=== PATIENT | male | born 1955 | race African-American/Black ===

== ENCOUNTER 2018-06-12 02:11 | Emergency (ER) | payer MEDICAID, OTHER ==
[~2018-06-12] VITALS: Ht 182.9 cm; Wt 89.8 kg
--- NOTE | 2018-06-12 02:33 | NUR ---
ED Nurse Note: pt is aox4, able to ambulate with steady gait. pt c/o of flu like symptoms x3 days. Pt c/o cough and congestion with body aches, pain level 7/10.
[2018-06-12 02:35] VITALS: BP 116/84
[2018-06-12] MEDS ORDERED: Albuterol ud Inhalation HHN ONE (03:30)
[2018-06-12] MEDS ORDERED: Ipratropium 0.02% Inh Soln 2.5ml UD HHN ONE (03:30)
--- NOTE | 2018-06-12 03:50 | NUR ---
ED Nurse Note: Breathing treatment at bedside.
[2018-06-12] MEDS ORDERED: PROMETHAZINE-C118 M1 ORAL (04:29)
[2018-06-12] MEDS ORDERED: ALBUTEROL SULF8.5 GM INH (04:29)
[2018-06-12] MEDS ORDERED: PREDNISONE20 MG ORAL (04:29)
[2018-06-12] MEDS ORDERED: LEVAQUIN750 MG ORAL (04:29)
[2018-06-12 04:37] VITALS: BP 123/82
--- NOTE | 2018-06-12 04:38 | NUR ---
ED Nurse Note: Pt cleared DC by ERMD. Pt is AO x 4times, VSS, on room air no distress. ID band removed. Belongings given to Pt. DC and meds instructions given to Pt, Pt understood well. Pt will stay with his care Pt at bedside, wait for his Pt admit or DC.
[2018-06-12 04:41] VITALS: BP 123/82
--- NOTE | 2018-06-12 21:40 | Emergency Room Report ---
History of Present Illness General Chief Complaint: Flu Like Symptoms Source: Patient Present Illness HPI 62-year-old male presents ED for evaluation. Complaining of cough and congestion 3 days. States that he was taking care of his sick friend likely got him sick. History of COPD. Admits to smoking. Notes cough with greenish phlegm. Denies fevers or chills. Denies chest pain. No other aggravating relieving factors. Denies any other associated symptoms Allergies: Coded Allergies: IBUPROFEN (Verified Allergy, Unknown, 06/12/18) Patient History Past Medical History: HTN, COPD Pertinent Family History: none Social History: Reports: smoking; Denies: alcohol use, drug use Immunizations: UTD Reviewed Nursing Documentation: PMH: Agreed; PSxH: Agreed Nursing Documentation-PMH Hx Hypertension: Yes Hx COPD: Yes Review of Systems All Other Systems: negative except mentioned in HPI Physical Exam Vital Signs Date Time Temp Pulse Resp B/P (MAP) Pulse Ox O2 Delivery O2 Flow Rate FiO2 06/12/18 02:25 97.7 90 22 116/84 96 Room Air 06/12/18 03:37 21 Sp02 EP Interpretation: reviewed, normal General Appearance: no apparent distress, alert, GCS 15, non-toxic Head: normocephalic, atraumatic Eyes: bilateral eye normal inspection, bilateral eye PERRL ENT: hearing grossly normal, normal pharynx, no angioedema, normal voice Neck: full range of motion, supple/symm/no masses Respiratory: chest non-tender, speaking full sentences, wheezing Cardiovascular #1: regular rate, rhythm, no edema Cardiovascular #2: 2+ carotid (R), 2+ carotid (L), 2+ radial (R), 2+ radial (L) , 2+ dorsalis pedis (R), 2+ dorsalis pedis (L) Gastrointestinal: normal bowel sounds, non tender, soft, non-distended, no guarding, no rebound Rectal: deferred Genitourinary: normal inspection, no CVA tenderness Musculoskeletal: back normal, gait/station normal, normal range of motion, non- tender Neurologic: alert, oriented x3, responsive, motor strength/tone normal, sensory intact, speech normal Psychiatric: judgement/insight normal, memory normal, mood/affect normal, no suicidal/homicidal ideation Reflexes: 3+ bicep (R), 3+ bicep (L), 3+ tricep (R), 3+ tricep (L), 3+ knee (R) , 3+ knee (L) Skin: normal color, no rash, warm/dry, well hydrated Lymphatic: no adenopathy Medical Decision Making Diagnostic Impression: Primary Impression: COPD (chronic obstructive pulmonary disease) Qualified Codes: J44.9 - Chronic obstructive pulmonary disease, unspecified ER Course Hospital Course 62-year-old male presents to ED complaining of cough, wheezing Differential diagnoses include: URI, bronchitis, asthma/COPD, pneumonia Clinical course Patient placed on stretcher. After initial history and physical I ordered prednisone and nebulizer treatment. Upon reassessment patient states cough and symptoms have improved. Given history of COPD we will discharge with antibiotics. Safe for discharge with close outpatient follow-up Diagnosis - COPD Stable and discharged home with prescriptions for Rx levaquin, prednisone, albuterol, promethazine. Instructed to followup with PMD. Return to ED if symptoms recur or worsen Last Vital Signs Date Time Temp Pulse Resp B/P (MAP) Pulse Ox O2 Delivery O2 Flow Rate FiO2 06/12/18 04:41 98.4 89 20 123/82 97 Room Air 21 Status: improved Disposition: HOME, SELF-CARE Condition: Stable Scripts Levofloxacin* (LEVAQUIN*) 750 Mg Tablet 750 MG ORAL DAILY for 5 Days, TAB Prov: Zion Tapia MD 06/12/18 Codeine/Promethazine Hcl* (PROMETHAZINE-CODEINE SYRUP*) 118 Ml Syrup 5 ML ORAL Q6H PRN for For Cough, #118 ML 0 Refills Prov: Zion Tapia MD 06/12/18 Prednisone* (PREDNISONE*) 20 Mg Tablet 40 MG ORAL DAILY, #10 TAB Prov: Zion Tapia MD 06/12/18 Albuterol Sulfate* (ALBUTEROL SULFATE MDI*) 8.5 Gm Hfa.aer.ad 2 PUFF INH Q6H, #1 EA 0 Refills Prov: Zion Tapia MD 06/12/18 Patient Instructions: Acute Bronchitis, [id number] Zion Tapia MD Jun 12, 2018 21:40
== END 2018-06-12 04:42 | disposition home or self-care (01) ==
LOC: EMR 02:50
DX: J44.9 Chronic obstructive pulmonary disease, unspecified (principal); I10 Essential (primary) hypertension; Z88.6 Allergy status to analgesic agent
CPT/HCPCS: 94640; 99283; J7512

== ENCOUNTER 2018-10-19 05:52 | Emergency (ER) | payer OTHER ==
[~2018-10-19] VITALS: Ht 182.9 cm; Wt 86.2 kg
[~2018-10-19 05:52] MED LIST: ALBUTEROL SULF8.5 GM INH; LEVAQUIN750 MG ORAL; PREDNISONE20 MG ORAL; PROMETHAZINE-C118 M1 ORAL
--- NOTE | 2018-10-19 06:01 | NUR ---
ED Nurse Note: PT walked in c/o cough and sob for a week, bodyache, pt states he has hx lung disease and is a smoker. noted diminished lung sound but no sx resp distress noted, airway intact, will cont monitor.
[2018-10-19 06:07] VITALS: BP 114/63
[2018-10-19] MEDS ORDERED: PREDNISONE20 MG ORAL (06:11)
[2018-10-19] MEDS ORDERED: DOXYCYCLINE MO100 MG ORAL (06:11)
--- NOTE | 2018-10-19 06:11 | Emergency Room Report ---
History of Present Illness General Chief Complaint: Upper Respiratory Illness Source: Patient Present Illness HPI This is a 63-year-old male with a history of COPD. He is a chronic smoker but able to cut down to 1 cigarette a day. He presents with chief complaint of shortness of breath and coughing for a week and a half now. Coughing is productive of yellow sputum. No fever chills. Better with his inhaler and nebulizer treatment. Also with congestion. Second complaint is swelling to his right forearm. Is been ongoing for several days. He said he relapsed and used cocaine. He injected into his right forearm. Now the area is swollen. Denies any fever chills but denies any drainage. He has a history of IV drug use. Allergies: Coded Allergies: IBUPROFEN (Verified Allergy, Unknown, 06/12/18) Patient History Past Medical History: see triage record, old chart reviewed, COPD Past Surgical History: other Pertinent Family History: none Social History: Reports: smoking, drug use Immunizations: other Reviewed Nursing Documentation: PMH: Agreed; PSxH: Agreed Nursing Documentation-PMH Past Medical History: No History, Except For Hx Hypertension: Yes Hx COPD: Yes Review of Systems Eye: Denies: eye pain, blurred vision ENT: Denies: ear pain, nose congestion, throat swelling Respiratory: Reports: cough, shortness of breath, sputum Cardiovascular: Denies: chest pain, palpitations Gastrointestinal: Denies: abdominal pain, diarrhea, nausea, vomiting Musculoskeletal: Denies: back pain, joint pain Skin: Denies: rash Neurological: Denies: headache, numbness Endocrine: Denies: increased thirst, increased urine Hematologic/Lymphatic: Denies: easy bruising All Other Systems: negative except mentioned in HPI Physical Exam Vital Signs Date Time Temp Pulse Resp B/P (MAP) Pulse Ox O2 Delivery O2 Flow Rate FiO2 10/19/18 05:55 98.2 87 16 114/63 (80) 90 Room Air Vitals with hypoxia. Repeat oxygenation is 93% on room air. Sp02 EP Interpretation: reviewed, abnormal General Appearance: well appearing, no apparent distress, alert Head: normocephalic, atraumatic Eyes: bilateral eye PERRL, bilateral eye EOMI ENT: hearing grossly normal, normal pharynx Neck: full range of motion, supple, no meningismus Respiratory: chest non-tender, lungs clear, decreased breath sounds Cardiovascular #1: regular rate, rhythm, no murmur Gastrointestinal: normal bowel sounds, non tender, no mass, no organomegaly, no bruit, non-distended Musculoskeletal: back normal, gait/station normal, normal range of motion, other - Right forearm: There is a thrombophlebitis to the vein in the mid forearm. No abscess. Psychiatric: mood/affect normal Skin: warm/dry Medical Decision Making Diagnostic Impression: Primary Impression: COPD (chronic obstructive pulmonary disease) Qualified Codes: J44.1 - Chronic obstructive pulmonary disease with (acute) exacerbation Additional Impressions: Phlebitis of right arm Cocaine abuse ER Course Presents with COPD exacerbation. Lungs are clear. Because is been going on for a week and a half now, we will put him on antibiotics and steroid. He also has a thrombophlebitis of his right forearm from drug injection. No abscess seen. Last Vital Signs Date Time Temp Pulse Resp B/P (MAP) Pulse Ox O2 Delivery O2 Flow Rate FiO2 10/19/18 05:55 98.2 87 16 114/63 (80) 90 Room Air Status: improved Disposition: HOME, SELF-CARE Condition: Stable Scripts Prednisone* (PREDNISONE*) 20 Mg Tablet 40 MG ORAL DAILY, #10 TAB Prov: Familia Henry MD 10/19/18 Doxycycline Monohydrate* (DOXYCYCLINE MONOHYDRATE*) 100 Mg Capsule 100 MG ORAL Q12H, #14 CAP 0 Refills Prov: Familia Henry MD 10/19/18 Additional Instructions: Follow-up with your doctor in 7 days. Stop smoking and using drugs. Return if worse. Familia Henry MD Oct 19, 2018 06:11
--- NOTE | 2018-10-19 06:16 | NUR ---
ED Nurse Note: pt cleared to be d/c per ERMD, pt discharge and aftercare instruction provided w/ prescription, pt education done via discussion and handout, pt advised to follow up with pcp or return to ed if changes in condition, pt verbalized understanding and agrees with plan, vss, ambulatory w/ steady gait, left w/ all belongings.
[2018-10-19 06:17] VITALS: BP 114/63
== END 2018-10-19 06:17 | disposition home or self-care (01) ==
LOC: EMR 06:10
DX: J44.1 Chronic obstructive pulmonary disease with (acute) exacerbation (principal); I80.9 Phlebitis and thrombophlebitis of unspecified site; F14.10 Cocaine abuse, uncomplicated; Z88.6 Allergy status to analgesic agent; I10 Essential (primary) hypertension; F17.200 Nicotine dependence, unspecified, uncomplicated
CPT/HCPCS: 99282

== ENCOUNTER 2020-05-03 20:31 | Emergency (ER) | payer MEDICAID, OTHER ==
[~2020-05-03] VITALS: Ht 182.9 cm; Wt 77.1 kg
[~2020-05-03 20:31] MED LIST changes: +DOXYCYCLINE MO100 MG ORAL
[2020-05-03 20:40] VITALS: BP 130/92
--- NOTE | 2020-05-03 20:41 | NUR ---
ED Nurse Note: Pt walked into the ED due to abscess on the Right forearm. According to the pt he noticed it 2 days ago. Pt admitted injecting cocaine. The abscess area has readness, swollen, no fluid, and it is warm.
[2020-05-03] MEDS ORDERED: Lidocaine 1%/ 10mg/ml/EPI 0.01mg/ml 20ml INJ ONE (21:09)
[2020-05-03 21:15] VITALS: BP 130/92
--- NOTE | 2020-05-03 21:15 | NUR ---
ER DISCHARGE NOTE: Patient is cleared to be discharged per ERMD, pt is aox4, on room air, with stable vital signs. pt was given dc and prescription instructions, pt was able to verbalize understanding, pt id band removed without complications. pt is able to ambulate with steady gait. pt took all belongings.
[2020-05-03] MEDS ORDERED: CEPHALEXIN500 M1 ORAL (21:24)
[2020-05-03] MEDS ORDERED: BACTRIM DS TAB1 EAC1 ORAL (21:24)
--- NOTE | 2020-05-03 21:24 | Emergency Room Report ---
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 COVID-19 Screening: Negative COVID-19 COVID-19 Testing Source: [email or web address] Patient History Past Medical History: see triage record Social History: Reports: drug use - Cocaine, heroin Reviewed Nursing Documentation: PMH: Agreed; PSxH: Agreed Nursing Documentation-PMH Past Medical History: No History, Except For Hx Hypertension: Yes Hx COPD: Yes Review of Systems All Other Systems: negative except mentioned in HPI Physical Exam Vital Signs Date Time Temp Pulse Resp B/P (MAP) Pulse Ox O2 Delivery O2 Flow Rate FiO2 05/03/20 20:37 99.0 78 18 130/92 (105) 91 Room Air General Appearance: well appearing, no apparent distress Head: normocephalic, atraumatic ENT: hearing grossly normal, normal voice Neck: full range of motion, supple Respiratory: no respiratory distress, speaking full sentences Musculoskeletal: other - Left upper arm: Abscess measuring 2 cm, mid forearm, another abscess measuring 2 cm distal forearm Neurologic: alert, normal gait Psychiatric: mood/affect normal Skin: no rash Procedures Incision and Drainage Incision and Drainage : Consent: Verbal Site: Left forearm Blade Size: 11 I & D Procedure: betadine prep, sterile drapes applied, sterile dressing applied Wound Location: upper extremity Wound's Depth, Shape: superficial Wound Length (cm): 2 Wound Explored: no foreign body removed Irrigated w/ Saline (ccs): 100 Anesthesia: 1% Lidocaine, Lidocaine w/ Epi Volume Anesthetic (ccs): 10 Patient Tolerated: Well Complications: None Medical Decision Making Diagnostic Impression: Primary Impression: Abscess Additional Impression: IVDU (intravenous drug user) ER Course 64-year-old male presents with abscess, cellulitis, abscesses I/D Patient tolerated procedure well will start patient on Bactrim Keflex disposition home with return precautions drug counseling Last Vital Signs Date Time Temp Pulse Resp B/P (MAP) Pulse Ox O2 Delivery O2 Flow Rate FiO2 05/03/20 20:40 99.0 18 130/92 91 Room Air 05/03/20 20:37 78 Disposition: HOME, SELF-CARE Condition: Stable Scripts Trimethoprim/Sulfamethoxazole 160/800* (BACTRIM DS TABLET*) 1 Each Tablet 1 TAB ORAL Q12H for 14 Days, #28 TAB 0 Refills Prov: Miguelito oPrtillo MD 05/03/20 Cephalexin* (KEFLEX*) 500 Mg Tablet 500 MG ORAL EVERY 6 HOURS for 14 Days, #84 CAP Prov: Miguelito Portillo MD 05/03/20 [facility] Patient Instructions: Abscess Additional Instructions: The patient was provided with discharge instructions, notified to follow-up with a primary care doctor and or specialist in the next 24-48 hours, and to return to the ED if they have worsening of their symptoms. Please note that this report is being documented using [employer] technology. This can lead to erroneous entry secondary to incorrect interpretation by the dictating instrument. Miguelito Portillo MD May 03, 2020 21:24
[2020-05-03] MEDS ORDERED: PREDNISONE20 MG ORAL (21:33)
== END 2020-05-03 21:25 | disposition home or self-care (01) ==
LOC: EMR 21:25
DX: L02.414 Cutaneous abscess of left upper limb (principal); I10 Essential (primary) hypertension; J44.9 Chronic obstructive pulmonary disease, unspecified; Z79.899 Other long term (current) drug therapy; Z87.898 Personal history of other specified conditions; Z88.6 Allergy status to analgesic agent
CPT/HCPCS: 10060; Z7502; 99282

== ENCOUNTER 2020-05-11 08:43 | Emergency (ER) | payer MEDICAID ==
[~2020-05-11] VITALS: Ht 182.9 cm; Wt 78.9 kg
[~2020-05-11 08:43] MED LIST changes: +BACTRIM DS TAB1 EAC1 ORAL; +CEPHALEXIN500 M1 ORAL
[2020-05-11 09:30] VITALS: BP 149/96
--- NOTE | 2020-05-11 09:30 | NUR ---
ED Nurse Note: Pt ambulated to ED from home assisted by cane d/t R arm abscess that has been going on for a week and productive cough for a couple of days. Pt is AOx4, calm and cooperative to care, VSS, on RA, afebrile on triage. Pt is placed on bed and gown.
[2020-05-11] MEDS ORDERED: Tetanus/Diptheria/Pertussis IM ONE (09:45)
--- NOTE | 2020-05-11 09:50 | NUR ---
ED Nurse Note: rapid covid collected, sent to lab.
[2020-05-11] MEDS ORDERED: Lidocaine 1% Plain 30 ml INJ ONE (10:00)
[2020-05-11] MEDS ORDERED: PROVENTIL HFA6.7 G1 IH (10:49)
[2020-05-11] MEDS ORDERED: BACTRIM DS TAB1 EAC1 ORAL (10:49)
[2020-05-11] MEDS ORDERED: PREDNISONE20 MG ORAL (10:49)
[2020-05-11] MEDS ORDERED: DOXYCYCLINE MO100 MG ORAL (10:49)
--- NOTE | 2020-05-11 10:49 | Emergency Room Report ---
History of Present Illness General Chief Complaint: Skin Rash/Abscess Source: Patient Present Illness HPI 64M PMHx COPD, tobacco abuse, IVDU presents to the ED with multiple complaints First complaint is abscess to the right upper extremity x 1 week. Patient admits to using intramuscular heroin, last use 2 days ago. He states he has recurrent abscesses due to this problem. He states that he was here 1 week ago and "they drained them". He denies any complaint of fatigue, chest pain, hemoptysis, fever, chills, nausea, vomiting, diarrhea or any other symptoms. He is unaware of his tetanus status. Second complaint is for cough. Patient states that he has green phlegm, similar to his chronic smoker's cough. Denies Covid contacts or recent travel The patient's symptoms were gradual onset, severity was moderate, duration since 2 days. Quality: Aching Past medical history: Denies Past surgical history: Multiple incision and drainage Smoking: Positive Alcohol use: Denies Drug use: Cocaine and intramuscular heroin Review of systems: CONST: No fevers or chills, No night sweats PULMONARY: ++ productive cough, No shortness of breath CARDIAC: No chest pain, No palpitations GI: No vomiting, No diarrhea , No melena_or_BRBPR : No dysuria, No hematuria, No discharge NEURO: No new_focal_weakness_or_numbness, No confusion, No vision changes 14 point Review of Systems is otherwise negative except per HPI Physical Exam: GENERAL: Awake_alert_ nontoxic, no acute distress Spo2 96% on RA -normal EYES: Extraocular muscles are intact. Conjunctivae clear. Lids without swelling ENT: External nose and ear normal_in_appearance. Oropharynx clear. Head_atraumatic, Moist_oral_mucosa NECK: No JVD. No meningismus. No thyromegaly. Supple. Trachea midline RESP: Normal respiratory effort. Symmetric rise. No stridor. Clear_to_auscultation_No_rales_No_wheezes Speaks in full and complete sentences. No stridor, no drooling, no subcostal retractions CARDIAC: [Regular rate] and regular rhytm. No_significant pedal edema. ABDOMEN: Soft. Nondistended. Nontender_No_rebound_or_guarding. MSK: Normal muscle tone, without rigidity. Extremities without asymmetric deformity or swelling. SKIN: Multiple indurated abscesses without overlying cellulitis to the bilateral volar forearms. Radial pulse plus 2 out of 4 bilaterally Compartments are soft and compressible Most of the abscesses are old with no overlying fluctuance. There is 1 fluctuant but mostly indurated abscess to the right medial forearm No subcutaneous crepitus bilaterally. no signs of necrotizing fasciitis or septic joint Shoulders, elbows, wrists have preserved range of motion with no pain out of proportion NEUROLOGIC: Alert, oriented x3. Motor_and_sensation_grossly_intact. No truncal ataxia. Gait_normal Psych: Normal mood and affect, normal judgment and insight - COORDINATION OF CARE Case was discussed with: Patient Any labs and imaging that were ordered were interpreted as part of the medical decision making: Medical Decision Making/Plan: Differential diagnosis includes musculoskeletal pain, soft tissue infection such as cellulitis or abscess, DOUBT necrotizing fasciitis, DOUBT compartment syndrome, DOUBT septic arthritis, among others. Patient is afebrile and well-appearing. No signs of necrotizing fasciitis, compartment syndrome, or septic arthritis on examination. He has multiple indurated abscesses to the volar aspect of bilateral forearms. 1 abscess on the right medial forearm has trace fluctuance but is mostly indurated. Fine-needle aspiration and incision/drainage was performed. Patient tolerated well without any complications. Distally the patient has capillary refill <2 seconds and strong pulses. There is no pallor or pain out of proportion to exam. There is no significant swelling or venous engorgement. The patient has no significant DVT risk factors or known hypercoagulable disorder. No evidence of arterial occlusion or deep venous thrombosis. The associated joints have full range of motion without any significant pain or restriction in mobility. There is no crepitus or pain out of proportion to exam and the patient is afebrile and nontoxic. No evidence of septic arthritis, necrotizing fasciitis Tdap was given. Patient to be discharged on antibiotics for his recurrent abscesses secondary to intramuscular heroin abuse. There are no signs of endocarditis at this time. Patient also had complaint of cough. Chest x-ray is unremarkable for pneumonia. Suspect COPD exacerbation given patient's continued tobacco abuse. I have counseled patient extensively to stop smoking tobacco. I have also counseled him to stop doing intramuscular heroin as the complications are potentially fatal He verbalized his understanding I recommend wound check in 48 hours Pertinent results reviewed with the patient. I educated the patient on the current treatment plan including the risks, benefits, and alternatives. I also discussed the extent and limitations of the current evaluation. The patient expressed understanding and agreement with plan. I recommended PMD follow-up within 1-2 days. Also advised that the patient return to the Emergency Department as soon as possible if they experience any new, persistent, or worsening symptoms. Allergies: Coded Allergies: IBUPROFEN (Verified Allergy, Unknown, 06/12/18) COVID-19 Screening Contact w/high risk pt: No Experienced COVID-19 symptoms?: Yes COVID-19 Testing performed PATIENT SUPPORT ASSOCIATE: No Nursing Documentation-PMH Hx Hypertension: Yes Hx COPD: Yes Physical Exam Vital Signs Date Time Temp Pulse Resp B/P (MAP) Pulse Ox O2 Delivery O2 Flow Rate FiO2 05/11/20 08:58 98.4 79 16 149/96 (113) 91 Room Air Sp02 EP Interpretation: reviewed, normal Procedures Incision and Drainage Progress Abscess Incision and Drainage with irrigation by me: Location: Right medial forearm Anesthesia: Local 1% Lidocaine Technique: Irrigated. Disrupted loculations w/ instrumentation Packing: None Complications: Neurovascularly intact post procedure Medical Decision Making Diagnostic Impression: Primary Impression: Abscess Additional Impressions: Cough COPD (chronic obstructive pulmonary disease) IVDU (intravenous drug user) Chest X-Ray Diagnostic Results Chest X-Ray Diagnostic Results : PA Scribe Text Chest X-Ray: Views: [ 1 ] view(s) Indication: Cough Findings: Normal heart size. Mediastinum normal. No infiltrate. Impression: COPD The X-ray(s) were independently viewed and interpreted contemporaneously Electronically signed by Cassi spaulding DO Reevaluation Time: 10:47 Last Vital Signs Date Time Temp Pulse Resp B/P (MAP) Pulse Ox O2 Delivery O2 Flow Rate FiO2 05/11/20 09:30 98.4 16 149/96 91 Room Air 05/11/20 08:58 79 Status: improved Disposition: HOME, SELF-CARE Admit Decision Time: 10:47 Condition: Stable Scripts Albuterol Sulfate (PROVENTIL HFA) 6.7 Gm Hfa.aer.ad 6.7 GM IH QID for 7 Days, #6.7 GM Prov: Cassi Olson.OHadley 05/11/20 Prednisone* (PREDNISONE*) 20 Mg Tablet 40 MG ORAL DAILY, #10 TAB Prov: Cassi Olson D.O. 05/11/20 Trimethoprim/Sulfamethoxazole 160/800* (BACTRIM DS TABLET*) 1 Each Tablet 1 TAB ORAL Q12H, #14 TAB 0 Refills Prov: Cassi Olson D.O. 05/11/20 Doxycycline Monohydrate* (DOXYCYCLINE MONOHYDRATE*) 100 Mg Capsule 100 MG ORAL Q12H, #14 CAP 0 Refills Prov: Cassi Olson D.O. 05/11/20 Referrals: [facility] (PCP) Patient Instructions: Abscess Additional Instructions: Instructions for patient/placement coordinator: Follow up with your physician in 1-2 days. Stop doing injection drugs as they are bad for your health. Wound check in 24 to 48 hours. Follow-up with your doctor sooner if your condition requires a more timely clinical reevaluation. Return to the emergency department immediately if you feel that your condition is worsening or if you have any new or concerning symptoms. Review your discharge instructions and take any prescriptions given as instructed. [facility] PROVIDES FREE OR LOW-COST HEALTH SERVICES TO PEOPLE WHO CAN SHOW PROOF THAT THEY LIVE IN [facility]. TO FIND MORE CLINICS PARTNERED WITH [facility] TO PROVIDE SERVICE, PLEASE CALL . Cassi Olson D.O. May 11, 2020 10:49
[2020-05-11 11:14] VITALS: BP 150/98
--- NOTE | 2020-05-11 11:14 | NUR ---
ER DISCHARGE NOTE: Patient is cleared to be discharged per ERMD, pt is aox4, on room air, with stable vital signs. pt was given dc and prescription instructions, pt was able to verbalize understanding, pt id band removed. pt is able to ambulate with steady gait. pt took all belongings.
--- NOTE | 2020-05-11 14:10 | Diagnostic Imaging Report ---
Indication: Cough Technique: One view of the chest Comparison: none Findings: Heart size is normal. The aorta is tortuous and ectatic. Upper mediastinum is unremarkable. Impression: No acute process
== END 2020-05-11 11:15 | disposition home or self-care (01) ==
LOC: EMR 09:19
DX: L02.413 Cutaneous abscess of right upper limb (principal); R05 Cough; J44.9 Chronic obstructive pulmonary disease, unspecified; F11.10 Opioid abuse, uncomplicated; F14.90 Cocaine use, unspecified, uncomplicated; I10 Essential (primary) hypertension; Z88.6 Allergy status to analgesic agent
CPT/HCPCS: 10060; 71045; 90471; 90715; J2001; J8540; U0002; Z7502; 99283

== ENCOUNTER 2020-06-24 19:05 | Emergency (ER) | payer MEDICAID ==
[~2020-06-24] VITALS: Ht 185.4 cm; Wt 79.4 kg
[~2020-06-24 19:05] MED LIST changes: +PROVENTIL HFA6.7 G1 IH
--- NOTE | 2020-06-24 19:45 | NUR ---
ED Nurse Note: Patient came to the ED from home with complaints of SOB for the past 3-4 days, cough with green sputum. Denies fever, chills.
--- NOTE | 2020-06-24 19:51 | Emergency Room Report ---
History of Present Illness General Chief Complaint: Dyspnea/Respdistress Source: Patient Present Illness HPI Patient is a 65-year-old male presents for increased cough. Reports having increased shortness of breath over the past few days. Reports having increased productive cough. Prior history of COPD as well as cardiac disease. Denies any fever. Had a sick contacts at home with similar symptoms. Had previous history of abscess but denies any current antibiotic use. Denies any chest discomfort currently. Had not been having any vomiting or diarrhea. Denies any new leg pain or swelling. States he had not been taking Lasix for several weeks due to lack of swelling. 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 COVID-19 Screening: Negative COVID-19 COVID-19 Testing Source: NASAL Patient History Past Medical History: see triage record Reviewed Nursing Documentation: PMH: Agreed; PSxH: Agreed Nursing Documentation-PMH Hx Hypertension: Yes Hx COPD: Yes Review of Systems All Other Systems: negative except mentioned in HPI Physical Exam Vital Signs Date Time Temp Pulse Resp B/P (MAP) Pulse Ox O2 Delivery O2 Flow Rate FiO2 06/24/20 19:33 98.2 77 18 135/80 (98) 94 Room Air General Appearance: alert, GCS 15, Chronically Ill Respiratory: normal inspection, speaking full sentences, wheezing Cardiovascular #1: normal inspection, regular rate, rhythm, edema - trace edema Gastrointestinal: normal inspection Musculoskeletal: normal inspection, back normal, decreased range of motion Neurologic: alert, motor strength/tone normal, 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 Differential diagnosis include was not limited to pneumonia, CHF, myocardial infarction among others. Because of complexity of patient's case laboratory tests and imaging studies were ordered. Patient present increased discolored cough and has prior history of COPD. He takes inhalers at home and per appears to have a exacerbation of COPD. Last Vital Signs Date Time Temp Pulse Resp B/P (MAP) Pulse Ox O2 Delivery O2 Flow Rate FiO2 06/24/20 19:33 98.2 77 18 135/80 (98) 94 Room Air Referrals: [facility]ERR[facility] (PCP) Jose Roberto Mata MD Jun 24, 2020 19:51
[2020-06-24] MEDS ORDERED: Albuterol/Ipratropium 3ml neb HHN ONE (20:00)
[2020-06-24 20:21] VITALS: BP 139/91
--- NOTE | 2020-06-24 21:00 | NUR ---
ED Nurse Note: Right AC [address] by [address] Henry.
--- NOTE | 2020-06-24 22:37 | Diagnostic Imaging Report ---
EXAM: XR Chest, 1 View CLINICAL HISTORY: SOB TECHNIQUE: Frontal view of the chest. COMPARISON: 05/11/2020. FINDINGS: Lungs: The lungs are well aerated. A 0.8 cm nodule is noted at the right lung base. Pleural space: Unremarkable. No pneumothorax. Heart: Cardiomediastinal silhouette unremarkable. Mediastinum: See above. Bones/joints: Osteopenia. IMPRESSION: There is a 0.8 cm nodule at the right lung base of uncertain etiology. Neoplasm or metastatic disease cannot be excluded. CT imaging of the chest without contrast is highly advised to follow.
[2020-06-24] MEDS ORDERED: ADVAIR 250-501 EACH INH (22:51)
[2020-06-24] MEDS ORDERED: LEVOFLOXACIN500 MG ORAL (22:51)
[2020-06-24] MEDS ORDERED: VENTOLIN HFA18 GM INH (22:51)
[2020-06-24] MEDS ORDERED: GUAIFENESIN DM118 M1 ORAL (22:51)
--- NOTE | 2020-06-24 22:55 | NUR ---
Patient reports that he has to go home because he is in the process of moving. Benefits and consequences explained to patient, pt continues to want to go home. ER doctor Dr. Mata made aware.
--- NOTE | 2020-06-24 23:00 | NUR ---
AMA form signed.
--- NOTE | 2020-06-24 23:05 | NUR ---
AMA: Patient left AMA.
== END 2020-06-24 23:05 | disposition left against medical advice (07) ==
LOC: EMR 19:37
DX: J44.9 Chronic obstructive pulmonary disease, unspecified (principal); I10 Essential (primary) hypertension; Z88.6 Allergy status to analgesic agent
CPT/HCPCS: 36415; 71045; 83880; 84484; 93005; 94640; J7512; Z7502; 99284; J7620

== ENCOUNTER 2020-07-04 17:01 | Emergency (ER) | payer MEDICARE, MEDICAID ==
[~2020-07-04] VITALS: Ht 182.9 cm; Wt 81.6 kg
[~2020-07-04 17:01] MED LIST changes: +ADVAIR 250-501 EACH INH; +GUAIFENESIN DM118 M1 ORAL; +LEVOFLOXACIN500 MG ORAL; +VENTOLIN HFA18 GM INH
--- NOTE | 2020-07-04 18:39 | NUR ---
ED Nurse Note: Patient not in waiting room
[2020-07-04 19:50] VITALS: BP 134/85
--- NOTE | 2020-07-04 19:50 | Emergency Room Report ---
History of Present Illness General Chief Complaint: Skin Rash/Abscess Source: Patient Present Illness HPI Disclaimer: Please note that this report is being documented using DRAGON technology. This can lead to erroneous entry secondary to incorrect interpretation by the dictating instrument. HPI: 65-year-old left-handed male presenting for evaluation of left elbow swelling. The patient states he was injecting cocaine into his left arm 3 days ago. Noted pain and swelling since then. Denies breakage of the needle. Cannot recall last tetanus. He reports redness swelling and tenderness over the area. No pain over the olecranon itself. Still has full range of motion the elbow. Denies numbness or tingling. States he felt a bubble pop today and drained some purulent material. 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 EOMI. Resp: Normal work of breathing Skin: Edema erythema warmth and tenderness over the proximal forearm on the radial aspect. It does not involve the elbow joint itself. There is a linear track shimpan with overlying scab. No active bleeding. One small pustule that is already been opened and drained. No active drainage at this time. MSK: Normal tone and bulk. Moving all extremities. No obvious deformity. Neuro: Awake and alert. Mentating appropriately Medical Decision Making Diagnostic Impression: Primary Impression: Cellulitis Additional Impression: IVDU (intravenous drug user) ER Course 65-year-old male history of IV drug abuse presents for infection of the left upper arm. Patient appears to have a moderate cellulitis and previous abscess though this appears to have ruptured already. X-ray shows no retained foreign bodies no obvious fracture dislocation otherwise. There is some soft tissue swelling. Bedside ultrasound performed by me shows cobblestoning consistent with cellulitis and trace fluid but no obvious abscess that would be amenable to drainage. Tetanus updated. Will start on antibiotics. Instructed to return new or worsening symptoms. Other X-Ray Diagnostic Results Other X-Ray Diagnostic Results : X-Ray ordered: Left elbow # of Views/Limited Vs Complete: 3 View Indication: Pain EP Interpretation: Yes Interpretation: no dislocation, no fractures, other - Soft tissue swelling, no foreign body Impression: Other - No foreign body Electronically Signed by: Electronically signed by Dr. Karson Hansen MD Last Vital Signs Date Time Temp Pulse Resp B/P (MAP) Pulse Ox O2 Delivery O2 Flow Rate FiO2 07/04/20 19:32 98.2 89 20 134/85 (101) 95 Room Air Disposition: HOME, SELF-CARE Condition: Stable Scripts Cephalexin* (KEFLEX*) 500 Mg Capsule 500 MG ORAL EVERY 6 HOURS for 7 Days, #28 CAP Prov: Karson Hansen MD 07/04/20 Bacitracin (Bacitracin) 28.4 Gm Oint...g. 1 APPLIC TOPIC THREE TIMES A DAY for 5 Days, #28 GM Prov: Karson Hansen MD 07/04/20 Trimethoprim/Sulfamethoxazole 160/800* (BACTRIM DS TABLET*) 1 Each Tablet 1 TAB ORAL Q12H for 7 Days, #14 TAB 0 Refills Prov: Karson Hansen MD 07/04/20 Karson Hansen MD Jul 04, 2020 19:50
[2020-07-04] MEDS ORDERED: Bactrim-DS 1 tab ORAL ONE (20:00)
[2020-07-04] MEDS ORDERED: Tetanus/Diptheria/Pertussis IM ONE (20:00)
--- NOTE | 2020-07-04 20:00 | NUR ---
pt medicated per jul. v/s stable. pt in no distress. will continue to monitor pt
--- NOTE | 2020-07-04 20:07 | NUR ---
xray at bedside
[2020-07-04] MEDS ORDERED: BACITRACIN15 GM TOPIC (20:21)
[2020-07-04] MEDS ORDERED: BACTRIM DS TAB1 EAC1 ORAL (20:21)
[2020-07-04] MEDS ORDERED: CEPHALEXIN500 MG ORAL (20:26)
--- NOTE | 2020-07-04 20:45 | NUR ---
pt given and understands discharge instructions. ambulatory out w steady gait
--- NOTE | 2020-07-05 16:14 | Diagnostic Imaging Report ---
Indications:Left elbow pain Technique: Three or 4 views of the left elbow Comparison: None Findings:No acute fracture. No dislocation. No radiopaque foreign body. No soft tissue gas. No joint effusion Impression: Negative
== END 2020-07-04 20:46 | disposition home or self-care (01) ==
LOC: EMR 19:39
DX: L03.114 Cellulitis of left upper limb (principal); F19.90 Other psychoactive substance use, unspecified, uncomplicated; Z88.6 Allergy status to analgesic agent; J44.9 Chronic obstructive pulmonary disease, unspecified; I10 Essential (primary) hypertension; Z23 Encounter for immunization
CPT/HCPCS: 90471; 90715; 99284